=== PATIENT | female | born 1960 | race Caucasian/White ===

== ENCOUNTER → 2016-12-18 | Outpatient (CLI) | payer BC ==
[~2016-12-18] MED LIST: ATOR-22; AZIT250T PO; CZR50; EFFSR375; FLOVENT 110 MCG; IBUP-1050; NASONEX; PARO1TAB27; [UNRECOGNIZED DRUG - OTHER]
--- NOTE | 2016-12-19 07:55 | MAMMOGRAPHY REPORT ---
BILATERAL DIGITAL SCREENING MAMMOGRAM TOMOSYNTHESIS WITH CAD: 12/18/2016 CLINICAL HISTORY: Routine screening. Patient has no complaints. TECHNIQUE: Breast tomosynthesis in addition to standard 2D mammography was performed. Current study was also evaluated with a Computer Aided Detection (CAD) system. COMPARISON: Comparison is made to exams dated: 09/05/2015 mammogram, 09/02/2014 mammogram, 09/01/2013 ma mmogram, 08/28/2012 mammogram, 08/22/2011 mammogram, and 08/21/2010 mammogram - [facility] ter. BREAST COMPOSITION: There are scattered areas of fibroglandular density in both breasts. FINDINGS: There are diffuse bilateral benign-appearing round, punctate and coarse microcalcification s, stable compared to prior mammograms. An asymmetry with assisted microcalcification in the lower o uter middle one third of the right breast appears similar on all available exams dating back to at le ast 08/14/2007, therefore likely benign. However, there is a newly visualized oval circumscribed 5 x 10 mm mass in the upper outer anterior right breast, for which additional targeted ultrasound and po ssible additional mammographic views are recommended. No other new suspicious mass, architectural distortion or cluster of microcalcifications is seen bila terally. IMPRESSION: ACR BI-RADS CATEGORY 0: INCOMPLETE EVALUATION: NEED ADDITIONAL IMAGING EVALUATION The newly visualized 5 x 10 mm oval circumscribed mass in the right upper outer anterior breast needs additional evaluation. The patient will be called to schedule an appointment. Approximately 10% of breast cancers are not detected with mammography. A negative mammographic report should not delay biopsy if a clinically suggestive mass is present. Sydney Blakely M.D. ay/:12/18/2016 13:26:17 Line Maintenance Technician: Pratima Murillo, [facility] letter sent: Addl Imaging 0 BI-RADS Code: ACR BI-RADS Category 0: Incomplete Evaluation: Need Additional Imaging Evaluation
== END | disposition home or self-care (01) ==
LOC: C.MAMM 10:50
PROVIDERS: ATTEND Obstetrics & Gynecology
DX: Z12.31 Encounter for screening mammogram for malignant neoplasm of breast (principal); N63 Unspecified lump in breast

== ENCOUNTER → 2016-12-25 | Outpatient (CLI) | payer BC ==
--- NOTE | 2016-12-26 12:48 | MAMMOGRAPHY REPORT ---
UNILATERAL RIGHT DIGITAL DIAGNOSTIC MAMMOGRAM TOMOSYNTHESIS AND TARGETED RIGHT ULTRASOUND: 12/25/2016 CLINICAL HISTORY: 56-year-old woman called back from screening mammography for a newly visualized lob ulated, 5 x 10 mm mass in the upper outer anterior right breast. COMPARISON: Comparison is made to exams dated: 12/18/2016 mammogram, 09/05/2015 mammogram, 09/02/2014 m ammogram, 09/01/2013 mammogram, 08/28/2012 mammogram, and 08/22/2011 mammogram - [facility] ter. BREAST COMPOSITION: There are scattered areas of fibroglandular density in the right breast. FINDINGS: First real-time high-resolution ultrasound targeted in the right upper outer quadrant was p erformed. There is a benign anechoic cyst versus focal duct ectasia, given the fusiform shape of thi s cystic mass, in the 9:00 right breast, 3 cm from the nipple. It measures 7.9 x 3.3 x 4.6 mm and ma y correlate with the mammographic mass. For confirmation, a skin BB was placed overlying this sonographic mass and repeat right CC and MLO to mosynthesis images were performed. These additional mammographic views demonstrate alignment of the BB marker with the mammographic mass in question, confirming mammographicsonographic correlation and also benignity. IMPRESSION: ACR BI-RADS CATEGORY 2: BENIGN, TARGETED ULTRASOUND ACR BI-RADS CATEGORY 2: BENIGN The circumscribed 5 x 10 mm mass in the upper outer anterior right breast correlates with a benign cy st versus focal duct ectasia on ultrasound. There is no evidence of a suspicious solid mass or an in traductal mass. There is no mammographic or targeted sonographic evidence of malignancy. Return to a nnual mammogram screening schedule is recommended. The patient has been verbally notified of the res ults. Approximately 10% of breast cancers are not detected with mammography. A negative mammographic report should not delay biopsy if a clinically suggestive mass is present. Sydney Blakely M.D. ay/:12/25/2016 14:41:38 Fitting Room Maintenance Mechanic: Dr. Sydney Blakely, [facility] letter sent: Normal 1/2 BI-RADS Code: ACR BI-RADS Category 2: Benign Ultrasound BI-RADS: ACR BI-RADS Category 2: Benign
== END | disposition home or self-care (01) ==
LOC: C.MAMM 13:51
PROVIDERS: ATTEND Obstetrics & Gynecology
DX: N63 Unspecified lump in breast (principal); R92.2 Inconclusive mammogram

== ENCOUNTER → 2017-05-15 | Outpatient (CLI) | payer OTHER | END | disposition home or self-care (01) | LOC: C.PAPS 11:54 | PROVIDERS: ATTEND Obstetrics & Gynecology | DX: Z12.4 Encounter for screening for malignant neoplasm of cervix (principal) ==

== ENCOUNTER → 2018-01-07 | Outpatient (CLI) | payer OTHER ==
--- NOTE | 2018-01-07 13:53 | MAMMOGRAPHY REPORT ---
BILATERAL DIGITAL SCREENING MAMMOGRAM TOMOSYNTHESIS WITH CAD: 01/07/2018 CLINICAL HISTORY: Routine screening. Patient has no complaints. TECHNIQUE: The study was acquired using full field digital technology and interpreted from soft copy. Breast tomosynthesis in addition to standard 2D mammography was performed. Current study was also ev aluated with a Computer Aided Detection (CAD) system. COMPARISON: Comparison is made to exams dated: 12/25/2016 mammogram, 12/18/2016 mammogram, 09/05/2015 ma mmogram, 09/02/2014 mammogram, 09/01/2013 mammogram, and 08/28/2012 mammogram - [facility] er. BREAST COMPOSITION: There are scattered areas of fibroglandular density in both breasts. FINDINGS: No suspicious masses, calcifications, or areas of architectural distortion are noted in either breast . There has been no significant interval change compared to prior exams. Scattered bilateral benign-a ppearing calcifications are not significantly changed. IMPRESSION: ACR BI-RADS CATEGORY 2: BENIGN There is no mammographic evidence of malignancy. A 1 year screening mammogram is recommended.( [id number]) The patient will receive written notification of the results. Some breast cancers are not detected with mammography. A negative mammographic report should not irving y biopsy if a clinically suggestive mass is present. Wandy Franklin M.D. ah/:01/07/2018 12:47:01 [employer] Silver Assayer: RT Alexandrea(Deena)(M)(BD), [facility] letter sent: Normal 1/2 BI-RADS Code: ACR BI-RADS Category 2: Benign
== END | disposition home or self-care (01) ==
LOC: C.MAMM 09:30
PROVIDERS: ATTEND Obstetrics & Gynecology
DX: Z12.31 Encounter for screening mammogram for malignant neoplasm of breast (principal)